=== PATIENT | female | born 1955 | race Two or more races ===

== ENCOUNTER 2024-03-03 09:40 | Emergency (ER) | payer SELFPAY ==
[2024-03-03 09:51] VITALS: BP 172/96; PULSE 62; RESP 20; TEMP 97.8; BMI 30.9
[2024-03-03] MEDS ORDERED: IBUPROFEN 600 MG TABLET (FP) PO ONE ×2 (10:28→10:29)
[2024-03-03] MEDS: IBUPROFEN 600 MG TABLET (FP) PO ONE (10:32)
== END 2024-03-03 10:59 | disposition home or self-care (01) ==
LOC: JERFT 09:40
DX: S93.402A Sprain of unspecified ligament of left ankle, initial encounter (principal); X50.1XXA Overexertion from prolonged static or awkward postures, initial encounter
CPT/HCPCS: 73610-TC-LT-FY; 73630-TC-LT; 99283-25

== ENCOUNTER 2024-03-06 01:17 | Emergency (ER) | payer SELFPAY ==
[2024-03-06 01:24] VITALS: RESP 18; TEMP 98.2; BMI 28.9
[2024-03-06] MEDS ORDERED: ASPIRIN 81 MG CHEWABLE TABLETS ONE (02:20)
[2024-03-06] MEDS: ASPIRIN 81 MG CHEWABLE TABLETS PO ONE (02:40)
[2024-03-06 02:45] LABS: BASO % 0.8 % (0-2.0); EOS % 1.7 % (0-4.5); HEMATOCRIT 33.3 % (32.4-45.2); LYMPH % 20.4 % (8-40); MEAN CELL VOLUME 84.6 fl (80-96); MEAN PLT VOLUME 8.1 fl (7.5-11.1); MONO % 6.8 % (3.8-10.2); NEUT % 70.3 % (42.8-82.8); PLATELET COUNT 174 10^3/uL (134-434); RBC 3.93 M/mm3 (3.60-5.2); RDW 13.9 % (11.6-15.6); WHITE BLOOD COUNT 7.2 K/mm3 (4.0-10.0)
[2024-03-06 02:51] LABS: INR 0.96 (0.83-1.09); PROTHROMBIN TIME (PATIENT) 11.1 SEC (9.7-13.0)
[2024-03-06 02:53] LABS: ACTIVATED PTT 29.7 SECONDS (25.2-36.5)
[2024-03-06 03:05] LABS: POTASSIUM 4.2 mmol/L (3.5-5.1)
[2024-03-06 03:06] LABS: CALCIUM 9.2 mg/dL (8.5-10.1)
[2024-03-06 03:07] LABS: ALBUMIN 3.2 g/dl (3.4-5.0); BLOOD UREA NITROGEN 25.8 mg/dL (7-18)
[2024-03-06 03:10] LABS: CREATININE 1.2 mg/dL (0.55-1.3)
[2024-03-06 03:12] LABS: BILIRUBIN,TOTAL 0.4 mg/dL (0.2-1); TOT PROT 6.8 g/dl (6.4-8.2)
[2024-03-06] MEDS ORDERED: ALBUTEROL SO4 2.5/IPRATROPIUM 0.5 INH SOL 3 ML VIAL.NEB. NEB ONE (03:37)
[2024-03-06] MEDS: ALBUTEROL SO4 2.5/IPRATROPIUM 0.5 INH SOL 3 ML VIAL.NEB. NEB ONE (03:39)
[2024-03-06 04:12] VITALS: BP 161/81; PULSE 62
== END 2024-03-06 05:25 | disposition home or self-care (01) ==
LOC: JER 01:17
PROC: 3E0F7GC Introduction of Other Therapeutic Substance into Respiratory Tract, Via Natural or Artificial Opening (ICD-10-PCS; principal; 2024-03-06)
DX: R06.02 Shortness of breath (principal); R07.9 Chest pain, unspecified; R61 Generalized hyperhidrosis; Z91.138 Patient's unintentional underdosing of medication regimen for other reason; Z20.822 Contact with and (suspected) exposure to COVID-19
CPT/HCPCS: 0241U-QW; 36415; 71045-TC-FY; 80053; 83690; 84484; 85025; 85610; 85730; 93005; 93010; 99285-25

== ENCOUNTER 2024-03-06 15:32 | Inpatient (IN) | payer SELFPAY ==
[2024-03-06 15:44] VITALS: BMI 33.5
[2024-03-06 17:16] LABS: BASO % 0.6 % (0-2.0); EOS % 0.8 % (0-4.5); HEMATOCRIT 29.6 % (32.4-45.2); HEMOGLOBIN 9.8 GM/dL (10.7-15.3); LYMPH % 17.6 % (8-40); MCH 28.1 pg (25.7-33.7); MCHC 33.2 g/dl (32.0-36.0); MEAN CELL VOLUME 84.5 fl (80-96); MEAN PLT VOLUME 8.6 fl (7.5-11.1); MONO % 8.6 % (3.8-10.2); NEUT % 72.4 % (42.8-82.8); PLATELET COUNT 172 10^3/uL (134-434); WHITE BLOOD COUNT 5.9 K/mm3 (4.0-10.0)
[2024-03-06 17:38] LABS: POTASSIUM 4.9 mmol/L (3.5-5.1)
[2024-03-06 17:39] LABS: INR 0.99 (0.83-1.09); PROTHROMBIN TIME (PATIENT) 11.4 SEC (9.7-13.0)
[2024-03-06 17:40] LABS: ALBUMIN 3.1 g/dl (3.4-5.0); BLOOD UREA NITROGEN 23.2 mg/dL (7-18); CALCIUM 9.6 mg/dL (8.5-10.1)
[2024-03-06 17:42] LABS: ACTIVATED PTT 28.9 SECONDS (25.2-36.5); CREATININE 1.2 mg/dL (0.55-1.3)
[2024-03-06 17:45] LABS: BILIRUBIN,TOTAL 0.3 mg/dL (0.2-1); TOT PROT 6.4 g/dl (6.4-8.2)
[2024-03-06 17:47] LABS: N-TERMINAL BNP 3324.6 pg/ml (5-125)
[2024-03-06] MEDS ORDERED: FUROSEMIDE 40 MG/4 ML INJECTABLE VIAL ONE (18:43)
[2024-03-06] MEDS: FUROSEMIDE 40 MG/4 ML INJECTABLE VIAL IVPUSH ONE (18:55)
[2024-03-07] MEDS: FUROSEMIDE 40 MG/4 ML INJECTABLE VIAL IVPUSH SCH ×2 (02:06→14:43)
[2024-03-07 07:35] LABS: HEMATOCRIT 30.8 % (32.4-45.2); HEMOGLOBIN 10.3 GM/dL (10.7-15.3); MCH 28.5 pg (25.7-33.7); MCHC 33.4 g/dl (32.0-36.0); MEAN CELL VOLUME 85.3 fl (80-96); MEAN PLT VOLUME 8.9 fl (7.5-11.1); PLATELET COUNT 152 10^3/uL (134-434); RBC 3.61 M/mm3 (3.60-5.2); RDW 14.1 % (11.6-15.6); WHITE BLOOD COUNT 5.6 K/mm3 (4.0-10.0)
[2024-03-07 07:59] LABS: POTASSIUM 4.1 mmol/L (3.5-5.1)
[2024-03-07 08:38] LABS: ALBUMIN 3.3 g/dl (3.4-5.0); BLOOD UREA NITROGEN 23.4 mg/dL (7-18); CALCIUM 9.8 mg/dL (8.5-10.1)
[2024-03-07 08:40] LABS: MAGNESIUM 1.7 mg/dL (1.8-2.4)
[2024-03-07 08:42] LABS: CREATININE 1.3 mg/dL (0.55-1.3)
[2024-03-07 08:43] LABS: BILIRUBIN,TOTAL 0.4 mg/dL (0.2-1); TOT PROT 6.6 g/dl (6.4-8.2)
[2024-03-07] MEDS ORDERED: ENOXAPARIN NA (PORCINE) 40 MG/0.4 ML DISP.SYRIN SQ SCH (10:00)
[2024-03-07] MEDS ORDERED: SPIRONOLACTONE 25 MG TABLET PO SCH (10:00)
[2024-03-07] MEDS: FAMOTIDINE 20 MG TABLET PO SCH (10:54)
[2024-03-07] MEDS: ASPIRIN COATED 81 MG TABLET.EC PO SCH (10:54)
[2024-03-07] MEDS: CLOPIDOGREL BISULFATE 75 MG TABLET (FP) PO SCH (10:55)
[2024-03-07] MEDS: VALSARTAN 160 MG TABLET PO SCH (10:55)
[2024-03-07] MEDS: MAGNESIUM 2GM/50ML STERILE WATER IVPB IVPB ONE (10:55)
[2024-03-07] MEDS: INSULIN ASPART SLIDING SCALE (NOVOLOG) 1 VIAL SQ SCH (11:23)
[2024-03-07] MEDS: ATORVASTATIN CA 20 MG TABLET (FP) PO SCH (22:17)
[2024-03-08 07:34] LABS: BASO % 0.9 % (0-2.0); HEMATOCRIT 34.2 % (32.4-45.2); HEMOGLOBIN 11.3 GM/dL (10.7-15.3); LYMPH % 32.4 % (8-40); MCH 28.2 pg (25.7-33.7); MCHC 33.1 g/dl (32.0-36.0); MEAN CELL VOLUME 85.2 fl (80-96); MEAN PLT VOLUME 8.8 fl (7.5-11.1); MONO % 11.8 % (3.8-10.2); NEUT % 52.9 % (42.8-82.8); PLATELET COUNT 181 10^3/uL (134-434); RBC 4.01 M/mm3 (3.60-5.2); RDW 14.3 % (11.6-15.6)
[2024-03-08 07:54] LABS: ALBUMIN 3.4 g/dl (3.4-5.0); MAGNESIUM 2.1 mg/dL (1.8-2.4)
[2024-03-08 07:57] LABS: BILIRUBIN,TOTAL 0.5 mg/dL (0.2-1); CREATININE 1.4 mg/dL (0.55-1.3); TOT PROT 7.1 g/dl (6.4-8.2)
[2024-03-08 08:07] VITALS: RESP 18
[2024-03-08] MEDS ORDERED: ATORVASTATIN CA 40 MG TABLET (FP) PO SCH (10:47)
[2024-03-08 15:59] VITALS: BP 147/78; PULSE 73; TEMP 97.3
== END 2024-03-08 16:20 | disposition home or self-care (01) | DRG 194 ==
LOC: JER 15:32 → INTOOBSV 18:46 → JERBED 18:46 → OBSVTOIN 19:52 → J4W 20:36
PROVIDERS: ADMIT Internal Medicine; ATTEND Internal Medicine
DX: I11.0 Hypertensive heart disease with heart failure (principal); I50.23 Acute on chronic systolic (congestive) heart failure; E78.5 Hyperlipidemia, unspecified; E11.9 Type 2 diabetes mellitus without complications; I25.10 Atherosclerotic heart disease of native coronary artery without angina pectoris; E83.42 Hypomagnesemia; D64.9 Anemia, unspecified; Z95.5 Presence of coronary angioplasty implant and graft
CPT/HCPCS: 36415; 71045-TC-FY; 73610-TC-LT-FY; 73630-TC-LT; 80053; 80061; 82728; 82962; 83036; 83540; 83550; 83615; 83735; 83880; 84100; 84484; 85025; 85027; 85045; 85610; 85730; 86850; 86900; 86901; 93005; 93010; 93306-TC; 99285-25; G0378